=== PATIENT | female | born 1965 | race Caucasian/White ===

== ENCOUNTER → 2023-11-25 15:13 | Outpatient (REF) | payer BC, SELFPAY | LOC: WDC 15:13 | PROVIDERS: ATTENDING PHYSICIAN Nurse Practitioner Family | DX: Z12.31 Encounter for screening mammogram for malignant neoplasm of breast (principal) | CPT/HCPCS: 77063; 77067 ==

== ENCOUNTER → 2023-12-04 13:53 | Outpatient (REF) | payer BC, SELFPAY | LOC: RAD 13:53 | PROVIDERS: ATTENDING PHYSICIAN Nurse Practitioner Family | DX: Z87.39 Personal history of other diseases of the musculoskeletal system and connective tissue (principal); M54.16 Radiculopathy, lumbar region | CPT/HCPCS: 72110; 72202; 72220 ==

== ENCOUNTER → 2024-06-25 08:05 | Outpatient (REF) | payer BC, SELFPAY | LOC: WDC 08:05 | PROVIDERS: ATTENDING PHYSICIAN Internal Medicine Hematology & Oncology; FAMILY PHYSICIAN Nurse Practitioner Family | DX: R92.2 Inconclusive mammogram (principal); C50.511 Malignant neoplasm of lower-outer quadrant of right female breast | CPT/HCPCS: 76641 ==

== ENCOUNTER → 2024-11-30 08:47 | Outpatient (REF) | payer BC, SELFPAY | LOC: WDC 08:47 | PROVIDERS: ATTENDING PHYSICIAN Family Medicine Geriatric Medicine; FAMILY PHYSICIAN Nurse Practitioner Family | DX: Z12.31 Encounter for screening mammogram for malignant neoplasm of breast (principal) | CPT/HCPCS: 77063; 77067 ==

== ENCOUNTER → 2025-08-04 13:07 | Outpatient (REF) | payer BC, SELFPAY | LOC: WDC 13:07 | PROVIDERS: ATTENDING PHYSICIAN Internal Medicine Hematology & Oncology; FAMILY PHYSICIAN Family Medicine | DX: R92.2 Inconclusive mammogram (principal) | CPT/HCPCS: 76641 ==

== ENCOUNTER → 2025-08-11 10:48 | Outpatient (REF) | payer BC, SELFPAY ==
[2025-08-11 11:51] LABS: Hematocrit 33.3 % (37.0-47.0); Hemoglobin 11.6 g/dL (12.0-16.0); Mean Corp Hgb Conc. 34.8 g/dL (33.0-37.0); Mean Corpuscular Volume 97.7 fL (81.0-99.0); Nucleated Red Blood Cells % 0 %; Platelet Count 233 10^3/uL (130-400); Red Cell Dist. Width 12.9 % (11.5-14.5)
[2025-08-11 12:37] LABS: Glycohemoglobin (HgbA1c) 5.4 % (4.0-5.9)
[2025-08-11 15:27] LABS: ALT (SGPT) 248 U/L (0-35); AST (SGOT) 330 U/L (14-36); Albumin 4.6 g/dl (3.5-5.0); Alkaline Phosphatase 94 U/L (38-126); Blood Urea Nitrogen 8 mg/dl (7-17); Calcium 9.9 mg/dl (8.4-10.2); Carbon Dioxide 24 mmol/L (22-30); Chloride 99 mmol/L (98-107); Glucose 90 mg/dl (70-99); Potassium 5.1 mmol/L (3.5-5.1); Sodium 131 mmol/L (135-145); Total Protein 7.2 g/dl (6.3-8.2); eGFR > 60.00
[2025-08-12 14:24] LABS: Amylase 51 U/L (30-110); Lipase 298 U/L (23-300)
[2025-08-12 16:10] LABS: Hepatitis A Antibody, Total Negative (Negative); Hepatitis C Antibody Negative (Negative)
== END ==
LOC: REG 10:48
PROVIDERS: ATTENDING PHYSICIAN Physician Assistant Medical
DX: I10 Essential (primary) hypertension (principal); E78.00 Pure hypercholesterolemia, unspecified; F17.200 Nicotine dependence, unspecified, uncomplicated; F41.1 Generalized anxiety disorder
CPT/HCPCS: 36415; 80053; 82150; 83036; 83690; 84443; 85025; 86704; 86706; 86708; 86803

== ENCOUNTER 2025-08-25 13:30 | Emergency (ER) | payer BC, SELFPAY ==
[2025-08-25 13:30] VITALS: BMI 30.2
[2025-08-25 13:31] VITALS: BP 219/144
--- NOTE | 2025-08-25 16:00 | ED.GENMED ---
History of Present Illness
General
Chief Complaint: Abnormal Lab Value
Source: patient
Exam Limitations: none
Time Seen by Provider: 08/25/25 15:26
History of Present Illness
History of Present Illness:
See MDM
Past History
Past History
ED Past Medical History: HTN
ED Past Surgical History: None
Social History
Tobacco: Non-smoker
Alcohol: None
Phy Exam
Physical Exam
Physical Exam:
See MDM
Course
Orders/Labs/Results
Orders:
Orders
08/25/25 16:04
Basic Metabolic Panel Urgent
Abnormal Lab Results
08/25/25
16:04
Sodium 123 L mmol/L
(135-145)
Chloride 92 L mmol/L
(98-107)
BUN 6 L mg/dl
(7-17)
Creatinine 0.5 L mg/dL
(0.6-1.0)
Glucose 101 H mg/dl
(70-99)
08/25/25 16:04
Vital Signs
Initial and Last Documented VS:
Initial Vital Signs
Temp Pulse Resp BP Pulse Ox
98.8 F 122 18 219/144 99
08/25/25 13:31 08/25/25 13:31 08/25/25 13:31 08/25/25 13:31 08/25/25 13:31
Last Documented Vital Signs
Temp Pulse Resp BP Pulse Ox
98.8 F 122 18 219/144 99
08/25/25 13:31 08/25/25 13:31 08/25/25 13:31 08/25/25 13:31 08/25/25 16:02
MDM/Problems Addressed
Differential Diagnosis Includes:
Note:
CHIEF COMPLAINT(S)
Hyponatremia (low sodium levels).
HISTORY OF PRESENT ILLNESS
The patient is a 59-year-old female who presented with concerns of low sodium levels (hyponatremia). The patient reports that she had COVID, after which her sodium levels were noted to be low. She also experienced elevated liver enzyme levels and a
low white blood cell count. Following her initial diagnosis, she significantly increased her water intake, consuming eight to nine glasses per day for two weeks, which likely exacerbated her hyponatremia. During this time, the patient also began
taking sertraline. She denies taking hydrochlorothiazide or experiencing chest pain or shortness of breath. The patient attributes her fatigue to working the previous day. Her primary physician advised her to seek emergency care due to the low
sodium levels.
PAST MEDICAL AND SURIGICAL HISTORY
COVID-19 infection.
PHYSICAL EXAM
General: Alert, no acute distress.
Skin: Warm, dry.
Head: Normocephalic, atraumatic
Neck: Appears supple, trachea midline.
Eyes, Ears, Nose, Mouth, and Throat: Moist mucous membranes
Cardiovascular: No signs of cyanosis. Regular rate and rhythm
Respiratory: Respirations are non-labored.
Abdomen: Non-distended
Musculoskeletal: No deformities
Neurological: No focal neurological deficit observed.
Psychiatric: Cooperative, appropriate mood and affect.
PLAN
Re-evaluate sodium levels and potentially discharge based on results. Encourage fluid intake modification and arrange for the patients primary physician to follow up on lab results.
DIFFERENTIAL DIAGNOSIS
The Differential Diagnosis includes, in no particular order and is not limited to:
- Hyponatremia due to excessive hydration
- Possible effects of sertraline
- Liver dysfunction related to recent viral infection
- Additional causes of hyponatremia such as SIADH (Syndrome of Inappropriate Antidiuretic Hormone Secretion)
- Acute kidney injury
- Medication-induced electrolyte imbalance
- Hypothyroidism
- Adrenal insufficiency
- Heart failure
- Cirrhosis
SUMMARY OF ENCOUNTER
The patient was seen in the emergency department for evaluation of hyponatremia. Based on the history of recent excessive fluid intake following viral infection and the updates from the primary care physician, it was suspected that the low sodium
level was related to dilutional effect. An approach to restrict fluid intake was recommended. The importance of re-evaluation of the sodium levels was communicated to the patient to ensure appropriate levels and prevent complications such as
seizures.
DISPOSITION
Planning for discharge after lab re-evaluation if sodium levels are stable.
MEDICATION RECONCILIATION
- Sertraline (recently started).
MEDICAL DECISION MAKING
1. Number and Complexity of Problems Addressed: Chronic conditions affecting care include the patients recent COVID-19 infection and the current low sodium level (hyponatremia).
2. Data:
Category 2
- Clinical information was obtained from discussion with the patient regarding her recent medical history and treatment plan.
3. Risk:
- Prescription medication management was discussed.
- A fluid intake modification recommendation was made as the main intervention for the current electrolyte imbalance.
DIAGNOSIS
- Hyponatremia (ICD-10: E87.1)
- Suspected dilutional hyponatremia due to excessive water intake
The patient was counseled on adequate hydration levels and the importance of following up with primary care to monitor sodium levels.
SUMMARY OF ENCOUNTER
The patient, a 59-year-old female, was seen in the emergency department due to hyponatremia, likely related to excessive water intake over the past two weeks. She had a history of recent COVID-19 infection. After reevaluating her sodium levels,
which remained low at 123, it was determined that her electrolyte imbalance was possibly dilutional. The patient was counseled on modifying her fluid intake and was advised to reduce water consumption to normal levels. The potential risks of
hyponatremia were communicated, and she understood the plan to follow up with her primary care provider for repeat blood work in about a week. The patients blood pressure was noted to be elevated, which she attributed to mild anxiety and missing her
medication today.
DISPOSITION
Discharge.
ASSESSMENT
Hyponatremia, likely dilutional due to excessive water intake. Elevated blood pressure due to mild anxiety and omission of medication.
PLAN
Modify fluid intake to normal levels. Arrange follow-up with the primary care provider to repeat blood work in about a week.
INDEPENDENT REVIEW OF LABS AND INTERPRETATION OF TESTS
My independent review of the metabolic panel shows sodium level remained low at 123.
PATIENT EDUCATION AND COUNSELING
The patient was educated on the risks of excessive water intake and hyponatremia. She was advised to return to her normal level of water consumption and to follow up with her primary care provider for additional monitoring.
FOLLOW-UP INSTRUCTIONS
Please call the primary care providers office immediately to schedule a follow-up visit in about a week for repeat blood work.
MEDICATION RECONCILIATION
Patient reports not taking her anxiety medication today.
MEDICAL DECISION MAKING
1. Number and Complexity of Problems Addressed: Chronic conditions affecting care include the patients recent COVID-19 infection and current low sodium level (hyponatremia). Differential diagnosis includes hyponatremia due to excessive hydration,
possible effects of sertraline, and other potential causes.
2. Data:
Category 1: Labs reviewed include repeat blood work showing low sodium at 123.
Category 2: Clinical information obtained from discussion with the patient regarding her condition and recent medical history.
3. Risk: Prescription medication was discussed, and fluid intake adjustment was recommended to address electrolyte imbalance.
DIAGNOSIS
- Hyponatremia (ICD-10: E87.1)
- Elevated blood pressure concerning mild anxiety and missed medication.
*Pulse Oximetry
SaO2: 99
Oxygen Mode of Delivery: Room air
Patient hypoxic: no
*Critical Care Note
Total Time (30-74mins, 75-104mins- exclusive of procedures): Not Applicable
ED Attending Note
-
Portions of this chart may have been created with voice recognition software.� Occasional wrong word or��sound alike� substitutions may have occurred due to the inherent limitations of voice recognition software.
Discharge Plan
Departure
Patient Disposition: Home (Routine Discharge)
Date of Disposition: 08/25/25
Time of Disposition: 18:18
Patient with high blood pressure during this ER visit?: Yes
Discharge Problem:
Acute hyponatremia
Prescriptions:
No Action
metoprolol tartrate 50 MG tablet
100 mg PO QPM
lisinopril 40 MG tablet
40 mg PO DAILY
Vitamin D3 (cholecalciferol): 50,000 UNIT Capsule
50,000 unit PO HUMPHREYS
ondansetron HCl 4 MG tablet
4 mg PO Q8HPRN PRN (Reason: nausea)
loratadine 10 MG tablet
10 mg PO DAILY
loperamide 2 MG capsule
2 mg PO Q4HPRN PRN (Reason: DIARRHEA)
cephalexin 500 MG capsule
500 mg PO BID
furosemide 20 MG tablet
20 mg PO PRN PRN (Reason: Fluid retention)
Referrals:
Mame Peoples MD [Family Provider, Gynecology]
Activity Restrictions/Additional Instructions:
Please return for any worsening symptoms.
You may return at any time if you have further concerns.
Please follow up with your doctor at the first available appointment, preferably this week. Please discuss your elevated blood pressure and having your sodium levels rechecked next week. Please go back to your original amount of water intake.
Thank you for choosing [facility].
Interventions
Interventions:
*Risk Screen - Suicide Last Done: 08/25/25 13:31
*General Assessment Last Done: 08/25/25 16:10
*Neglect/Abuse Screening Last Done: 08/25/25 16:10
*ED- Fall Risk Assessment Last Done: 08/25/25 16:10
Discharge Date and Time
Print Language: VIET[place]ESE
[2025-08-25 16:38] LABS: Blood Urea Nitrogen 6 mg/dl (7-17); Calcium 10.1 mg/dl (8.4-10.2); Carbon Dioxide 26 mmol/L (22-30); Chloride 92 mmol/L (98-107); Estimated Creatinine Clearance 119 ml/min; Glucose 101 mg/dl (70-99); Potassium 4.4 mmol/L (3.5-5.1); Sodium 123 mmol/L (135-145); eGFR > 60.00
== END 2025-08-25 18:19 | disposition home or self-care (01) ==
LOC: EMR 13:30
PROVIDERS: EMERGENCY PHYSICIAN Student in an Organized Health Care Education/Training Program; FAMILY PHYSICIAN Obstetrics & Gynecology Gynecology
DX: E87.1 Hypo-osmolality and hyponatremia (principal); I10 Essential (primary) hypertension; Z86.16 Personal history of COVID-19
CPT/HCPCS: 99283; 36415; 80048; 80053; 85025

== ENCOUNTER → 2025-08-28 07:23 | Outpatient (REF) | payer BC, SELFPAY ==
[2025-08-28 08:43] LABS: Hematocrit 34.4 % (37.0-47.0); Hemoglobin 11.8 g/dL (12.0-16.0); Mean Corp Hgb Conc. 34.3 g/dL (33.0-37.0); Mean Corpuscular Volume 98.6 fL (81.0-99.0); Nucleated Red Blood Cells % 0 %; Platelet Count 280 10^3/uL (130-400); Red Cell Dist. Width 13.0 % (11.5-14.5)
[2025-08-28 09:25] LABS: ALT (SGPT) 147 U/L (0-35); AST (SGOT) 125 U/L (14-36); Albumin 4.6 g/dl (3.5-5.0); Alkaline Phosphatase 83 U/L (38-126); Blood Urea Nitrogen 15 mg/dl (7-17); Calcium 9.7 mg/dl (8.4-10.2); Carbon Dioxide 26 mmol/L (22-30); Chloride 96 mmol/L (98-107); Glucose 103 mg/dl (70-99); Potassium 4.9 mmol/L (3.5-5.1); Sodium 129 mmol/L (135-145); Total Protein 7.1 g/dl (6.3-8.2); eGFR > 60.00
== END ==
LOC: REG 07:23
PROVIDERS: ATTENDING PHYSICIAN Physician Assistant Medical
DX: E87.1 Hypo-osmolality and hyponatremia (principal); F10.20 Alcohol dependence, uncomplicated; R74.8 Abnormal levels of other serum enzymes; I10 Essential (primary) hypertension; R79.89 Other specified abnormal findings of blood chemistry
CPT/HCPCS: 36415; 80053; 85025

== ENCOUNTER → 2025-09-27 07:59 | Outpatient (REF) | payer BC, SELFPAY ==
[2025-09-27 08:36] LABS: Hematocrit 35.1 % (37.0-47.0); Hemoglobin 12.1 g/dL (12.0-16.0); Mean Corp Hgb Conc. 34.5 g/dL (33.0-37.0); Mean Corpuscular Volume 104.2 fL (81.0-99.0); Nucleated Red Blood Cells % 0 %; Platelet Count 209 10^3/uL (130-400); Red Cell Dist. Width 14.2 % (11.5-14.5)
[2025-09-27 09:53] LABS: ALT (SGPT) 51 U/L (0-35); AST (SGOT) 74 U/L (14-36); Albumin 4.4 g/dl (3.5-5.0); Alkaline Phosphatase 69 U/L (38-126); Blood Urea Nitrogen 12 mg/dl (7-17); Calcium 9.4 mg/dl (8.4-10.2); Carbon Dioxide 27 mmol/L (22-30); Chloride 103 mmol/L (98-107); Glucose 87 mg/dl (70-99); Potassium 4.6 mmol/L (3.5-5.1); Sodium 137 mmol/L (135-145); Total Protein 7.0 g/dl (6.3-8.2); eGFR > 60.00
[2025-09-28 09:28] LABS: Iron 166 ug/dl (37-170)
[2025-09-28 09:38] LABS: Total Iron Binding Capacity 283 ug/dl (265-497)
[2025-09-28 12:06] LABS: Ferritin 686.0 ng/ml (11.1-264.0)
[2025-09-28 12:21] LABS: Vitamin B12 486 pg/ml (239-931)
== END ==
LOC: REG 07:59
PROVIDERS: ATTENDING PHYSICIAN Physician Assistant Medical
DX: R79.89 Other specified abnormal findings of blood chemistry (principal); E87.1 Hypo-osmolality and hyponatremia
CPT/HCPCS: 36415; 80053; 82607; 82728; 83540; 83550; 85025